=== PATIENT | male | born 1990 | race Caucasian/White ===

== ENCOUNTER 2019-03-04 13:04 | Emergency (ER) | payer OTHER ==
[~2019-03-04] VITALS: Ht 180.3 cm; Wt 90.9 kg
[2019-03-04] MEDS ORDERED: NS 1,000 ML IV SCH (14:02)
[2019-03-04] MEDS ORDERED: ACETAMINOPHEN 325 MG TAB PO ONE (14:15)
[2019-03-04] MEDS ORDERED: ASPIRIN 81 MG CHEW TABLET PO ONE (14:15)
[2019-03-04 14:39] LABS: BASO % 0.4 % (0.0-1.0); EOS # 0.1 10^3/uL (0.0-0.50); EOS % 1.3 % (0.0-3.0); HEMATOCRIT 38.3 % (42.0-52.0); HEMOGLOBIN 13.4 g/dl (13.5-17.5); MEAN CORPUSCULAR HEMOGLOBIN 29.7 pg (27.0-33.0); MEAN CORPUSCULAR VOLUME 84.9 fl (80.0-96.0); MONO # 0.8 10^3/uL (0.0-0.8); MONO % 11.4 % (0.0-5.0); NEUTROPHILS # 4.9 10^3/uL (1.8-7.7); NEUTROPHILS % 71.6 % (36.0-66.0); PLATELET COUNT, AUTOMATED 144 10^3/uL (150-450); RED BLOOD COUNT 4.51 10^6/uL (4.30-6.10); WHITE BLOOD COUNT 6.8 10^3/uL (4.0-10.0)
--- NOTE | 2019-03-04 14:41 | REP ---
CHEST, SINGLE VIEW: Single view of the chest is performed. There is no acute infiltrate or pneumothorax. The heart is normal in size and the mediastinal silhouette is unremarkable. There is mild elevation of the left hemidiaphragm. Visualized osseous structures appear unremarkable. IMPRESSION: No acute infiltrate. Mild elevation of left hemidiaphragm. Electronically Signed by Ishaan Jaffe MD 03/04/2019 05:43 P
[2019-03-04 14:51] LABS: INR 1.15; PARTIAL THROMBOPLASTIN TIME 32.8 SECONDS (25.4-37.6); PROTHROMBIN TIME 14.9 SECONDS (12.1-14.4)
[2019-03-04 15:05] LABS: ALBUMIN 4.2 GM/DL (3.2-5.2); ALT/SGPT 19 U/L (12-78); BILIRUBIN,DIRECT 0.4 MG/DL (0.0-0.2); BLOOD UREA NITROGEN 13 MG/DL (7-18); CALCIUM LEVEL 8.6 MG/DL (8.5-10.1); CARBON DIOXIDE LEVEL 28 MEQ/L (21-32); CHLORIDE LEVEL 102 MEQ/L (98-107); CPK CREATINE PHOSPHOKINASE 124 U/L (39-308); CREATININE FOR GFR 0.98 MG/DL (0.70-1.30); GLOMERULAR FILTRATION RATE > 60.0 (>60); GLUCOSE, FASTING 91 MG/DL (70-100); LIPASE 88 U/L (73-393); MB/CK RELATIVE INDEX 0.97 (< OR =4); NT-PRO BNP 99 PG/ML (<125); POTASSIUM SERUM 3.7 MEQ/L (3.5-5.1); SODIUM LEVEL 136 MEQ/L (136-145); TROPONIN I 0.05 NG/ML (< 0.10)
[2019-03-04 15:06] LABS: INFLUENZA A AMPLIFICATION NEGATIVE (NEGATIVE); INFLUENZA B AMPLIFICATION NEGATIVE (NEGATIVE)
[2019-03-04] MEDS ORDERED: ISOVUE-370 76% 100ML VIAL (Q9967) As Ordered ONE (15:32)
[2019-03-04] MEDS ORDERED: OMEP40CA2 PO (16:55)
[2019-03-04] MEDS ORDERED: IBUP80TA PO (16:56)
[2019-03-04] MEDS ORDERED: OMEPRAZOLE 20 MG CAP PO ONE (17:00)
[2019-03-04] MEDS ORDERED: IBUPROFEN 800 MG TAB PO ONE (17:00)
--- NOTE | 2019-03-04 17:02 | REP ---
CT pulmonary angiogram: With IV contrast. History: Chest pain. Question pulmonary embolus. Comparison studies: No comparison study. Contrast dose: 75 ML of Isovue [address] technique: Helical scanning is acquired and overlapping 1.5 mm and contiguous 3 mm axial images are reformatted. In addition, maximum intensity projection and multiplanar re-formation images are generated in sagittal and coronal imaging projections. CT pulmonary angiographic findings: There is good opacification of the pulmonary arterial tree. There is no CT evidence of pulmonary embolism. The thoracic aorta enhances homogeneously and is normal in course and caliber. No aneurysm or dissection is seen. Maximum intensity projection images show no vessel cutoff or filling defect. There is an enlarged right axillary lymph node. This measures 36 x 13 x 26 mm. There are two of three adjacent normal-sized axillary lymph nodes. No left axillary adenopathy is seen. No hilar or mediastinal adenopathy is noted. Visualized upper abdominal structures are unremarkable. No adrenal lesion is seen. No bony destructive lesion is seen. The lung silverio are clear. Impression: No CT evidence of pulmonary embolus. There is a single enlarged right axillary lymph node. This is nonspecific and should be correlated clinically. Otherwise normal CT pulmonary angiogram. Electronically Signed by Mychal Herbert MD 03/05/2019 08:56 A
[2019-03-04 17:37] VITALS: BP 115/59
--- NOTE | 2019-03-05 01:36 | ECGEPIP ---
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
--- NOTE | 2019-03-05 11:48 | ED PDOC ---
Post-Departure Follow-Up leonor lam faxed formal report of cta chest for fu Katherine Morgan MD Mar 05, 2019 11:47
== END 2019-03-04 17:39 | disposition home or self-care (01) ==
LOC: M ED 13:04
DX: I30.9 Acute pericarditis, unspecified (principal); F17.200 Nicotine dependence, unspecified, uncomplicated; Z86.79 Personal history of other diseases of the circulatory system
CPT/HCPCS: 71045; 71275; 80048; 80076; 82550; 82553; 83605; 83690; 83880; 84439; 84443; 84484; 85025; 85610; 85652; 85730; 86140; 87040; 87502; 93005; 93041; 94760; 96360; 96361; 99285; Q9967

== ENCOUNTER → 2019-10-12 | Outpatient (REF) | payer OTHER ==
[~2019-10-12] MED LIST: IBUP80TA PO; OMEP40CA97 PO
[2019-10-12 13:04] LABS: BASO # 0.1 10^3/uL (0.0-0.2); BASO % 0.7 % (0.0-1.0); EOS # 0.5 10^3/uL (0.0-0.5); EOS % 4.4 % (0.0-3.0); HEMATOCRIT 42.6 % (42.0-52.0); HEMOGLOBIN 14.2 g/dl (13.5-17.5); LYMPH % 16.4 % (24.0-44.0); MEAN CORPUSCULAR HEMOGLOBIN 28.8 pg (27.0-33.0); MEAN CORPUSCULAR HGB CONC 33.3 g/dl (32.0-36.5); MEAN CORPUSCULAR VOLUME 86.4 fl (80.0-96.0); MONO # 0.9 10^3/uL (0.0-0.8); MONO % 7.6 % (0.0-5.0); NEUTROPHILS # 8.5 10^3/uL (1.5-8.5); NEUTROPHILS % 69.9 % (36.0-66.0); PLATELET COUNT, AUTOMATED 232 10^3/uL (150-450); RED BLOOD COUNT 4.93 10^6/uL (4.30-6.10); WHITE BLOOD COUNT 12.1 10^3/uL (4.0-10.0)
[2019-10-12 13:31] LABS: ALBUMIN 3.4 GM/DL (3.2-5.2); ALT/SGPT 22 U/L (12-78); BILIRUBIN,TOTAL 0.8 MG/DL (0.2-1.0); BLOOD UREA NITROGEN 7 MG/DL (7-18); CALCIUM LEVEL 9.1 MG/DL (8.5-10.1); CARBON DIOXIDE LEVEL 31 MEQ/L (21-32); CHLORIDE LEVEL 103 MEQ/L (98-107); CREATININE FOR GFR 0.99 MG/DL (0.70-1.30); GLOMERULAR FILTRATION RATE > 60.0 (>60); GLUCOSE, FASTING 81 MG/DL (70-100); POTASSIUM SERUM 4.2 MEQ/L (3.5-5.1); SODIUM LEVEL 140 MEQ/L (136-145); TOTAL PROTEIN 6.7 GM/DL (6.4-8.2)
== END ==
LOC: M SFHCLERA 11:51
PROVIDERS: ATTEND Physician Assistant
DX: R19.7 Diarrhea, unspecified (principal)
CPT/HCPCS: 80053; 81002; 85025; 87507; G0463